=== PATIENT | male | born 1940 | race Caucasian/White ===

== ENCOUNTER 2018-01-30 13:05 | Inpatient (IN) ==
[2018-01-30] MEDS ORDERED: methylPREDNISolone 125 MG/2 ML VIAL IVP ONE (13:10)
[2018-01-30] MEDS ORDERED: Azithromycin 500 MG in D5% in Water 250 ML IVPB ONE (13:10)
[2018-01-30] MEDS ORDERED: cefTRIAXone 1,000 MG in Water for inj. (sterile) 20 ML 10 ML IVP ONE (13:10)
[2018-01-30] MEDS ORDERED: Ipratropium/Albuterol Neb 3 ML IH ONE (13:10)
--- NOTE | 2018-01-30 13:12 | Emergency Department Note ---
Disposition Clinical Impression: Acute exacerbation of chronic obstructive airways disease, History of fall, Hypokalemia, Renal insufficiency, mild, Hypocalcemia, Troponin I above reference range Decubitus ulcers Qualifiers: Pressure ulcer location: buttock Pressure ulcer stage: unspecified pressure ulcer stage Laterality: unspecified laterality Qualified Code(s): L89.309 - Pressure ulcer of unspecified buttock, unspecified stage Disposition: Admitted As Inpatient Condition: Fair Referrals: Shasta Hwang CNP [Primary Care Provider] - Forms: ED Satisfaction Letter SOB HPI - General Chief Complaint: ED Shortness of Breath/Dyspnea Stated Complaint: SOB Time Seen by Provider: 01/30/18 13:06 Source: patient, EMS Mode of arrival: EMS Limitations: physical limitation (Hearing impaired) Nursing Notes Reviewed: Yes Vital Signs Reviewed: Yes - History of Present Illness Patient had a visiting RN visit today and found that he had increased shortness of breath, persistent left hip pain after a fall yesterday and his blood pressure was "little high". A squad was called for transport for further evaluation. The patient states he has had shortness of breath for years it is worse now. He has used his inhalers without much relief. EMS found him to be saturating at 88% on room air and he is not on oxygen at home. They did administer an aerosol and supplemental oxygen. He states he has a cough which is deep, rattling and productive of white phlegm. He denies chest pain, fevers or chills. Is not having diaphoresis, abdominal pain, nausea or diarrhea. He states he does have soreness in the left hip when he is up walking and wanted to have that checked. He has been ambulatory since the fall and for EMS today. The EMS personnel advised they were called to see him yesterday and he had "pain all over" but was ambulatory and declined transport. Patient cannot identify a reason for the fall and thinks he might have passed out. Pt Subjective Complaint: shortness of breath, cough Onset (ago): year(s) Context: recent illness Severity: moderate Consistency/Duration: intermittent, gradually worsening Improves with: oxygen, rest, bronchodilators Worsens with: exertion, coughing Known history of: COPD Associated symptoms: Reports: cough, wheezing, sputum production, lower extremity pain (Left hip, status post fall), syncope. Denies: chest pain, pain with inspiration, fever, orthopnea, polyuria, polydipsia, parasthesias, palpitations, hemoptysis, diaphoresis, nausea/vomiting, abdominal pain, rash Treatment prior to arrival: oxygen, bronchodilator Cough present: Yes Cough Description: Voluntary, Productive, Rattling Cough Frequency: Intermittent Sputum production: Yes Sputum Amount: Moderate Sputum Color: White - Related Data Home oxygen amount: none Home Medications Medication Instructions Recorded Confirmed Dextromethorphan Hb/Doxylamine 236 ml PO AD 10/14/17 01/30/18 [Vicks Nyquil Cough Liquid] Docusate [Colace] 100 mg PO BID 10/14/17 01/30/18 Fluticasone Propionate Nasal 50 mcg NS DAILY 10/14/17 01/30/18 [Flonase] Morphine Sulfate [Morphine Oral 5 ml PO HS 10/14/17 01/30/18 Solution] Albuterol Sulfate [Ventolin Hfa] 2 puff IH Q6H PRN 01/30/18 01/30/18 Budesonide/Formoterol 160/4.5 2 puff IH Q6H PRN 01/30/18 01/30/18 [Symbicort 160/4.5] Allergies Allergy/AdvReac Type Severity Reaction Status Date / Time No Known Allergies Allergy Verified 07/09/15 18:30 All systems ED: reviewed and negative except as stated. Past Medical History - Past Medical History Attestation: Yes The following information was validated with the patient. Source: patient, old records reviewed, nursing notes reviewed Medical history: Reports: COPD, CVA, renal disease (Renal insufficiency), TIA, other (Chronic bilateral decubiti/hidradenitis suppurativa with chronic wound care, chronic pain, chronic anemia) Surgical history: Reports: cataract, orthopedic, other (Bilateral ankles) Psychiatric history: Reports: depression - Social History Smoking Status: Current every day smoker Smokeless Tobacco Status: No Alcohol use: Reports: occasionally Drug use: Reports: none Physical Exam - General Limitations: physical limitation (Hearing impairment) General appearance: alert, in no apparent distress - Head Head exam: atraumatic - Eye Eye exam: Present: normal appearance, PERRL, EOMI. Absent: conjunctival injection - ENT ENT exam: normal exam, normal oropharynx, mucous membranes moist - Neck Neck exam: Present: normal inspection, full ROM, trachea midline. Absent: tenderness, lymphadenopathy - Chest Chest inspection: Present: normal inspection, symmetric chest wall rise - Respiratory Respiratory exam: Present: respiratory distress, wheezes, prolonged expiratory phase, other (Patient has a rhonchorous cough.) - Cardiovascular Cardiovascular exam: Present: regular rate, normal rhythm, normal heart sounds. Absent: tachycardia - Abdominal Exam Abdominal exam: Present: soft, Non-Tender, normal bowel sounds. Absent: tenderness, distention, guarding, rebound, rigidity - Extremities Exam Extremities exam: Present: normal inspection, full ROM, normal capillary refill. Absent: tenderness, pedal edema, calf tenderness - Expanded Lower Extremity Exam Hip/Pelvis exam: Present: normal inspection, full ROM (The patient did not evidence any pain with palpation or motion of the left hip.), pelvis stable. Absent: tenderness, swelling, shortening Upper leg exam: Present: normal inspection, full ROM. Absent: tenderness Knee exam: Present: normal inspection, full ROM. Absent: tenderness, swelling Foot/toe exam: Present: normal inspection, full ROM Neurovascular/Tendon exam: Present: normal capillary refill. Absent: motor deficit, sensory deficit, tendon deficit Gait: not tested/not observed - Back Exam Back exam: Present: normal inspection, full ROM. Absent: tenderness, vertebral tenderness - Neurological Exam Neurological exam: Present: alert, oriented X3 - Psychiatric Psychiatric exam: Present: normal affect, normal mood - Skin Skin exam: Present: warm, dry, intact, normal color. Absent: rash, diaphoresis , pallor Course Course Narrative: 1420: All testing has been discussed with the patient. Given his troponin being mildly elevated at 0.06 is written for a repeat level at 3 PM. He is also written for a dose of oral potassium. I believe will be prudent to have him in for observation on respiratory protocol and for correction of his metabolic derangements. It would be appropriate to recheck his troponin a couple more times. I have placed a page to Dr. Lewis to see if he is agreeable to observing the patient at this facility providing his repeat troponin is not showing progressive elevation. The patient continues to deny any chest pain. Patient currently has a heart rate of 79, blood pressure 136/83 and an oxygen saturation of 99%. 1430: The patient has difficulty with swallowing pills this potassium has been switched to liquid form. I have spoken with Dr. Lewis who is agreeable with observation at this facility providing his troponin is not elevating. 1545: With return of a troponin of 0.05, care is coordinated to observation status to the floor. Vital Signs Temperature 99.2 F 01/30/18 13:07 Pulse Rate 79 01/30/18 13:07 Respiratory Rate 20 01/30/18 13:07 Blood Pressure 144/73 01/30/18 13:07 O2 Sat by Pulse Oximetry 94 01/30/18 13:07 Temperature 99.2 F 01/30/18 13:07 Pulse Rate 75 01/30/18 15:42 Respiratory Rate 19 01/30/18 15:42 Blood Pressure 156/75 01/30/18 15:42 O2 Sat by Pulse Oximetry 96 01/30/18 15:42 Oxygen Delivery Oxygen Delivery Nasal Cannula Shortness of Breath/Dyspnea - Differential Diagnosis Likely: acute exacerbation of chronic obstructive airways disease, pneumonia, asthma with exacerbation - Medical Records Medical records reviewed: Yes I reviewed the patient's medical records. - Lab Data Lab results reviewed: Yes I reviewed the patient's lab results. Lab results narrative: Patient's hemoglobin was 7.8 and his creatinine was 1.64 on 10/14/2017. Result diagrams: 01/30/18 13:35 01/30/18 13:35 Lab Results 01/30/18 01/30/18 01/30/18 Range/Units 13:35 13:35 13:35 WBC 10.3 (4.3-11.1) K/mcL RBC 3.13 L (4.19-5.50) M/mcL Hgb 8.2 L (12.9-16.9) g/dL Hct 25.8 L (37.5-50.1) % MCV 82.4 L (83.0-100.0) fL MCH 26.2 L (28.0-33.3) pg MCHC 31.8 (31.6-35.5) g/dL RDW 18.3 H (11.5-14.5) % Plt Count 291 (140-400) K/mcL MPV 11.2 (9.4-12.4) fL Immature Gran % 0.3 (0-4) % Seg Neutrophils % 84.1 % Lymphocytes % 10.6 % Monocytes % 4.7 % Eosinophils % 0.2 % Basophils % 0.1 % Neutrophils # 8.7 (1.6-8.9) K/mcL Lymphocytes # 1.1 (0.6-4.6) K/mcL Monocytes # 0.5 (0.0-1.3) K/mcL Eosinophils # 0.0 (0.0-0.6) K/mcL Basophils # 0.0 (0.0-0.2) K/mcL Sodium 137 (136-145) mEq/L Potassium 2.9 L (3.5-5.1) mEq/L Chloride 103 (98-107) mEq/L Carbon Dioxide 28 (23-29) mEq/L BUN 19 (8-23) mg/dL Creatinine 1.36 H (0.70-1.30) mg/dL Est GFR ( Amer) > 60 (> 60) Est GFR (Non-Af Amer) 51 L (> 60) BUN/Creatinine Ratio 14 (6-26) Glucose 109 H (70-105) mg/dL Calculated Osmolality 287 (280-300) Lactic Acid 0.9 (0.5-2.2) mmol/L Calcium 8.0 L (8.6-10.3) mg/dL Troponin I 0.06 H* (< 0.04) ng/mL B-Natriuretic Peptide (Less than 100) pg/mL 01/30/18 01/30/18 Range/Units 13:35 15:13 WBC (4.3-11.1) K/mcL RBC (4.19-5.50) M/mcL Hgb (12.9-16.9) g/dL Hct (37.5-50.1) % MCV (83.0-100.0) fL MCH (28.0-33.3) pg MCHC (31.6-35.5) g/dL RDW (11.5-14.5) % Plt Count (140-400) K/mcL MPV (9.4-12.4) fL Immature Gran % (0-4) % Seg Neutrophils % % Lymphocytes % % Monocytes % % Eosinophils % % Basophils % % Neutrophils # (1.6-8.9) K/mcL Lymphocytes # (0.6-4.6) K/mcL Monocytes # (0.0-1.3) K/mcL Eosinophils # (0.0-0.6) K/mcL Basophils # (0.0-0.2) K/mcL Sodium (136-145) mEq/L Potassium (3.5-5.1) mEq/L Chloride (98-107) mEq/L Carbon Dioxide (23-29) mEq/L BUN (8-23) mg/dL Creatinine (0.70-1.30) mg/dL Est GFR ( Amer) (> 60) Est GFR (Non-Af Amer) (> 60) BUN/Creatinine Ratio (6-26) Glucose (70-105) mg/dL Calculated Osmolality (280-300) Lactic Acid (0.5-2.2) mmol/L Calcium (8.6-10.3) mg/dL Troponin I 0.05 H* (< 0.04) ng/mL B-Natriuretic Peptide 2127 H (Less than 100) pg/mL - Radiology Data Radiology results reviewed: Yes I reviewed the patient's radiology results. Single view chest x-ray is performed. This does not demonstrate evidence for infiltrate, pneumothorax, foreign body or heart failure. Patient has expanded consistent with COPD and has a left sided effusion. The cardiac silhouette is normal. I do not see abnormality to the osseous structures of the chest. This is on my interpretation. Two-view series is obtained of the left hip and pelvis. This does not demonstrate evidence for acute hip fracture or dislocation. Pelvis is without evidence for fracture. This is on my interpretation. Impressions Chest X-Ray 01/30/18 13:11 IMPRESSION: Cardiomegaly with perihilar and lower lobe interstitial changes and small effusions. Correlate clinical evidence of vascular congestion. D/ / 01/30/2018 13:49:25 Torsten De Jesus MD / [facility] Interpreting Provider: Torsten De Jesus MD Hip X-Ray 01/30/18 13:12 IMPRESSION: 1. No acute findings in the left hip. 2. Bony demineralization partially limits evaluation for fractures. D/ / Jose Miguel Funes MD / Jose Miguel Funes MD Interpreting Provider: Jose Miguel Funes MD - EKG Data EKG attestation: Yes I reviewed and interpreted this EKG. EKG shows normal: Reports: sinus rhythm, axis, intervals, QRS complexes, ST-T waves Rate: Reports: normal Rhythm: Reports: PVC's Interpretation: Reports: no acute changes, nonspecific ST-T wave changes
[2018-01-30 13:56] LABS: Basophils % 0.1 %; Eosinophils % 0.2 %; Hematocrit 25.8 % (37.5-50.1); Hemoglobin 8.2 g/dL (12.9-16.9); Immature Granulocytes % 0.3 % (0-4); Lymphocytes # 1.1 K/mcL (0.6-4.6); Lymphocytes % 10.6 %; Mean Corpuscular HGB Conc 31.8 g/dL (31.6-35.5); Mean Corpuscular Hemoglobin 26.2 pg (28.0-33.3); Mean Corpuscular Volume 82.4 fL (83.0-100.0); Mean Platelet Volume 11.2 fL (9.4-12.4); Monocytes # 0.5 K/mcL (0.0-1.3); Monocytes % 4.7 %; Neutrophils # 8.7 K/mcL (1.6-8.9); Platelet Count 291 K/mcL (140-400); Red Blood Count 3.13 M/mcL (4.19-5.50); Red Cell Distribution Width 18.3 % (11.5-14.5); Segmented Neutrophils % 84.1 %
[2018-01-30 14:16] LABS: BUN/Creatinine Ratio 14 (6-26); Blood Urea Nitrogen 19 mg/dL (8-23); Carbon Dioxide 28 mEq/L (23-29); Chloride 103 mEq/L (98-107); Glucose 109 mg/dL (70-105); Osmolality,Calculated 287 (280-300); Potassium 2.9 mEq/L (3.5-5.1); Sodium 137 mEq/L (136-145); eGFR For African Americans > 60 (> 60); eGFR For Non-African Americans 51 (> 60)
[2018-01-30 14:19] LABS: Troponin I 0.06 ng/mL (< 0.04)
[2018-01-30] MEDS ORDERED: Potassium Chloride Elixir 20 MEQ/15 ML UDC PO ONE (14:31)
[2018-01-30] MEDS ORDERED: Naloxone 0.4 MG/ML INJ IVP PRN (16:24)
[2018-01-30] MEDS ORDERED: Ipratropium/Albuterol Neb 3 ML IH SCH (16:24)
--- NOTE | 2018-01-30 17:53 | Internal Med History&Physical ---
Date of Encounter: 01/30/18 Time of Encounter: 17:15 Assessment and Plan (1) Hypokalemia Current visit: Yes Status: Acute (2) Multiple falls Current visit: Yes Status: Acute Probably multifactorial etiology including electrolyte imbalance, orthostatic hypotension, and anemia. Will order PT and OT evaluation and further interventions and workup as needed. (3) Anemia Current visit: Yes Status: Acute Suspect iron deficiency. Will order anemia testing. Qualifiers: Anemia type: unspecified type Qualified Code(s): D64.9 - Anemia, unspecified (4) CKD (chronic kidney disease) stage 3, GFR 30-59 ml/min Current visit: Yes Status: Chronic Will monitor renal indices. (5) Elevated brain natriuretic peptide (BNP) level Current visit: Yes Status: Acute Will order echocardiogram. (6) Weight loss Current visit: Yes Status: Acute Will order CT of chest, abdomen, and pelvis (7) Neutrophilia Current visit: Yes Status: Acute We will check UA and chest CT. He has been started on Rocephin and Zithromax. Will add lactobacillus. (8) Low zinc level Current visit: Yes Status: Acute Zinc level was 43 on 05/05/2017. Will recheck in a.m. (9) COPD (chronic obstructive pulmonary disease) Current visit: Yes Status: Chronic Will check room air oximetry prior to discharge. Qualifiers: COPD type: unspecified COPD Qualified Code(s): J44.9 - Chronic obstructive pulmonary disease, unspecified (10) Dysphagia Current visit: No Status: Chronic Will order chest CT as per above. He will likely need EGD Qualifiers: Dysphagia type: pharyngeal phase Qualified Code(s): R13.13 - Dysphagia, pharyngeal phase Internal Medicine - H&P: HPI Chief complaint: Fall and weakness Admitted From: Emergency Dept Plans for Post Hospital Care: Home History of present illness: Mr. Lemus is a 77 year old male who came to emergency room after his home health nurse found him to have increased dyspnea on exertion and complaining of hip pain after a fall yesterday in his home. He was evaluated in emergency room and found to have anemia and azotemia. He was admitted to [facility] floor for ongoing care needs. He states he has fallen approximately 6-8 times in the past year without significant injury. He reports he has had "mini strokes" in the past but upon further questioning it seems these are likely TIAs. He denies large distribution strokes or seizures. He reports he has had dysphagia increased over the past 2 years. 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 He still drinks 10-12 cans of beer per week. Denies disorders of his gallbladder or exocrine pancreas. Past Med Surg Social Fam HX - Past Medical History Medical history: COPD, CVA, renal disease (Renal insufficiency), TIA, other ( Chronic bilateral decubiti/hidradenitis suppurativa with chronic wound care, chronic pain, chronic anemia) Psychiatric history: depression - Past Surgical History Surgical History: cataract, orthopedic, other (Bilateral ankles) - Social History Smoking Status: Current every day smoker Smokeless Tobacco Status: No Alcohol use: occasionally Drug use: none - Family History Father Living Status: Hx Family Neuromuscular Disorders: Yes (CVA) Internal Medicine - H&P: Meds Dextromethorphan Hb/Doxylamine [Vicks Nyquil Cough Liquid] 236 ml PO AD [History] Docusate [Colace] 100 mg PO BID 10/14/17 [History] Fluticasone Propionate Nasal [Flonase] 50 mcg NS DAILY 10/14/17 [History] Morphine Sulfate [Morphine Oral Solution] 5 ml PO HS 10/14/17 [History] Albuterol Sulfate [Ventolin Hfa] 2 puff IH Q6H PRN 01/30/18 [History] Budesonide/Formoterol 160/4.5 [Symbicort 160/4.5] 2 puff IH Q6H PRN 01/30/18 [ History] 3 Allergy/AdvReac Type Severity Reaction Status Date / Time No Known Allergies Allergy Verified 07/09/15 18:30 All Systems PM: A 10-system review of systems was performed and is negative for pertinent findings except as documented above in the HPI. Review of systems: Gen.: He states his weight has decreased from approximately 150 pounds one year ago to 120 pounds presently, unintentionally. Cardiovascular: He denies diagnoses of hypertension and [place] heart failure angina DVT or pulmonary embolus. He has had orthostatic symptoms on arising from a seated position for at least one year. Respiratory: He has smoked since age 7 up to 2 packs per day. He has been told he has COPD but has not had PFTs and does not use home oxygen. GI: As per history of present illness : He reports he has had hematuria in the past. He denies other known kidney bladder prostate disorders Neurologic: As per history of present illness Endocrine: He denies diabetes thyroid disease or hyperlipidemia Hematology/oncology: He thinks he has been told he had anemia in the past but does not remember details. He denies known internal malignancies or other blood disorders Psychiatric: He feels depressed at times but does not take medication for this. Denies anxiety other mental health issues Muscle skeletal: He has DJD and chronic low back pain. 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 He denies gout. - Constitutional Vitals: Temp Pulse Resp BP Pulse Ox 99.2 F 70 18 147/82 98 01/30/18 13:07 01/30/18 16:09 01/30/18 16:09 01/30/18 16:09 01/30/18 16:09 Exam: General: He is a well-developed lean male lying in bed who appears in no severe distress HEENT: Head is atraumatic and normocephalic. Eyes: EOMI.. There is no scleral icterus. Mouth: Mucosa is dry. Neck: There is no thyromegaly or adenopathy noted. Heart: Irregular. I cannot tell if it is regularly or irregularly irregular. No murmurs are heard. Lungs: He has scattered rhonchi bilaterally. There is no significant wheezing heard. He has diminished breaths diffusely. Abdomen: Soft and nontender. No masses or guarding are noted. Extremities: He is wearing SALVADOR hose. There is 1+ edema around the ankle area. He has tobacco stains on his right hand fingernails. He has mild DJD changes of his hands. Neurologic: Mental status: He is talkative and a fair to good historian. Cranial nerves: Smile is symmetric. Forehead wrinkles bilaterally. Tongue protrudes midline. EOMI. Motor: There is no pronator drift. Cerebellar: Finger to nose is intact bilaterally. Skin: He has multiple Allevyn on his sacrum and gluteal areas which I did not remove. Internal Med - H&P Results - Labs CBC & Chem 7: 01/30/18 13:35 01/30/18 13:35
[2018-01-30] MEDS: 0.45 % Sodium Chloride w/KCl 20 MEQ/1,000 ML MLS IVC SCH (19:02)
[2018-01-30] MEDS: Morphine Oral CONC 5 MG/0.25 ML ORAL.SYG PO SCH (20:15)
[2018-01-30 21:24] LABS: Bilirubin,Urine Negative (Negative); Blood,Urine Trace-lysed (Negative); Clarity,Urine Clear (Clear); Color,Urine Yellow (Yellow); Glucose,Urine (UA) Normal (Normal); Ketones,Urine Negative (Negative); Leukocyte Esterase,Urine Negative (Negative); Nitrite,Urine Negative (Negative); PH,Urine 5.5 pH Units (5.0-8.0); Protein,Urine >=300 mg/dL (Neg-Trace); Specific Gravity,Urine 1.025 (1.010-1.025); Urobilinogen,Urine Normal (Normal)
[2018-01-30 21:35] LABS: Granular Casts,Urine Few per lpf (None Seen); Hyaline Casts,Urine Few per lpf (None-Few); RBC,Urine 0-3 per hpf (0-3); Squamous Epithelial Cell,Urine Few per lpf (None-Few); WBC,Urine 0-3 per hpf (0-3)
[2018-01-30 21:36] LABS: Bacteria,Urine Moderate per hpf (None-Few)
[2018-01-30 22:03] LABS: Iron < 10 mcg/dL (65-175); Transferrin 151 mg/dL (203-362)
[2018-01-30] MEDS: MethylPREDNISolone 40 MG/ML VIAL IVP SCH (23:02)
[2018-01-31 03:52] LABS: Hematocrit 23.5 % (37.5-50.1); Hemoglobin 7.5 g/dL (12.9-16.9); Immature Granulocytes % 0.2 % (0-4); Lymphocytes # 0.4 K/mcL (0.6-4.6); Lymphocytes % 7.5 %; Mean Corpuscular HGB Conc 31.9 g/dL (31.6-35.5); Mean Corpuscular Hemoglobin 26.4 pg (28.0-33.3); Mean Corpuscular Volume 82.7 fL (83.0-100.0); Mean Platelet Volume 10.8 fL (9.4-12.4); Monocytes % 0.5 %; Neutrophils # 5.4 K/mcL (1.6-8.9); Platelet Count 235 K/mcL (140-400); Red Blood Count 2.84 M/mcL (4.19-5.50); Red Cell Distribution Width 18.3 % (11.5-14.5); Segmented Neutrophils % 91.8 %
[2018-01-31 04:07] LABS: INR 1.1; Prothrombin Time 11.9 Seconds (9.4-12.1)
[2018-01-31 04:28] LABS: Alanine Aminotransferase 9 Units/L (7-52); Albumin 2.2 g/dL (3.5-5.7); Albumin/Globulin Ratio 0.6 (1.1-2.2); Alkaline Phosphatase 71 Units/L (34-104); Aspartate Amino Transferase 17 Units/L (13-39); BUN/Creatinine Ratio 15 (6-26); Bilirubin,Total 0.2 mg/dL (0.3-1.0); Blood Urea Nitrogen 19 mg/dL (8-23); Calcium 7.5 mg/dL (8.6-10.3); Carbon Dioxide 28 mEq/L (23-29); Chloride 104 mEq/L (98-107); Globulin 3.4 g/dL (2.4-3.5); Glucose 153 mg/dL (70-105); Osmolality,Calculated 287 (280-300); Potassium 4.4 mEq/L (3.5-5.1); Sodium 136 mEq/L (136-145); Total Protein 5.6 g/dL (6.4-8.9); eGFR For African Americans > 60 (> 60); eGFR For Non-African Americans 53 (> 60)
[2018-01-31 04:45] LABS: Thyroid Stimulating Hormone 2.329 mcIU/mL (0.340-5.600)
[2018-01-31] MEDS ORDERED: cefTRIAXone 1,000 MG in Water for inj. (sterile) 20 ML 10 ML IVP SCH (09:00)
[2018-01-31] MEDS ORDERED: Azithromycin 500 MG in D5% in Water 250 ML IVPB SCH (09:00)
[2018-01-31] MEDS ORDERED: Potassium Chloride Elixir 20 MEQ/15 ML UDC PO SCH (09:00)
[2018-01-31 09:21] LABS: Folate 19.1 ng/mL (3.0-16.0)
[2018-01-31] MEDS: MethylPREDNISolone 40 MG/ML VIAL IVP SCH (09:33)
[2018-01-31] MEDS: 0.45 % Sodium Chloride w/KCl 20 MEQ/1,000 ML MLS IVC SCH (09:55)
[2018-01-31] MEDS: Docusate Oral Soln 100 MG/10 ML UDC PO SCH ×2 (09:56→20:49)
--- NOTE | 2018-01-31 11:00 | Internal Med Progress Note ---
Date of Encounter: 01/31/18 Time of Encounter: 10:50 - Assessment and plan (1) Hypokalemia Current Visit: Yes Status: Acute Assessment and plan: January 31. Resolved. We will reduce supplement potassium and monitor labs. (2) Multiple falls Current Visit: Yes Status: Acute Assessment and plan: January 31. Continue physical therapy and occupational therapy interventions. (3) Anemia Current Visit: Yes Status: Acute Assessment and plan: January 31. Ferritin level pending. Iron profile consistent with iron deficiency. Will give iron dextran IV. Qualifiers: Anemia type: unspecified type Qualified Code(s): D64.9 - Anemia, unspecified (4) CKD (chronic kidney disease) stage 3, GFR 30-59 ml/min Current Visit: Yes Status: Chronic Assessment and plan: January 31. Renal indices minimally changed. Continue to monitor. (5) Elevated brain natriuretic peptide (BNP) level Current Visit: Yes Status: Acute Assessment and plan: January 31. Awaiting echocardiogram report. Will start low-dose Coreg and lisinopril with Bumex and isosorbide. Recheck labs in a.m. (6) Weight loss Current Visit: Yes Status: Acute Assessment and plan: January 31. CT scans did not show obvious malignancy. Continue to monitor weight and food intake etc. (7) Neutrophilia Current Visit: Yes Status: Acute Assessment and plan: January 31. Continue Rocephin and Zithromax with lactobacillus. (8) Low zinc level Current Visit: Yes Status: Acute Assessment and plan: January 31. Zinc level pending. (9) COPD (chronic obstructive pulmonary disease) Current Visit: Yes Status: Chronic Assessment and plan: January 31. Continue present regimen. Will check room air oximetry prior to discharge. Qualifiers: COPD type: unspecified COPD Qualified Code(s): J44.9 - Chronic obstructive pulmonary disease, unspecified (10) Dysphagia Current Visit: No Status: Chronic Assessment and plan: January 31. Chest CT did not show obvious pathology to explain symptoms. He will likely need EGD in the future. Qualifiers: Dysphagia type: pharyngeal phase Qualified Code(s): R13.13 - Dysphagia, pharyngeal phase (11) Vitamin D deficiency Current Visit: Yes Status: Acute Assessment and plan: January 31. Vitamin D level low at 22. Will give supplemental vitamin D. - Subjective Interval history: January 31. He has no new complaints. - Constitutional Vitals: Temp Pulse Resp BP Pulse Ox 98.1 F 75 16 166/71 95 01/31/18 06:29 01/31/18 10:07 01/31/18 06:29 01/31/18 06:29 01/31/18 10:07 Exam: He is lying in bed resting comfortably. His affect is slightly flat. I reviewed his medications, lab results and CT report. Internal Medicine: Result - Labs CBC & Chem 7: 01/31/18 03:20 01/31/18 03:20 Labs: Short CBC 01/31/18 Range/Units 03:20 WBC 5.9 (4.3-11.1) K/mcL Hgb 7.5 L (12.9-16.9) g/dL Hct 23.5 L (37.5-50.1) % Plt Count 235 (140-400) K/mcL Neutrophils # 5.4 (1.6-8.9) K/mcL BMP 01/31/18 03:20 Sodium 136 Potassium 4.4 D Chloride 104 Carbon Dioxide 28 BUN 19 Creatinine 1.31 H Glucose 153 H Calcium 7.5 L Cardiac Enzymes 01/30/18 01/31/18 Range/Units 21:29 03:20 Troponin I 0.04 H* 0.05 H* (< 0.04) ng/mL Liver Function 01/31/18 Range/Units 03:20 Total Bilirubin 0.2 L (0.3-1.0) mg/dL AST 17 (13-39) Units/L ALT 9 (7-52) Units/L Alkaline Phosphatase 71 (34-104) Units/L Albumin 2.2 L (3.5-5.7) g/dL Urine 01/30/18 Range/Units 21:16 Urine Color Yellow (Yellow) Urine Clarity Clear (Clear) Urine pH 5.5 (5.0-8.0) pH Units Ur Specific [place] 1.025 (1.010-1.025) Urine Protein >=300 H (Neg-Trace) mg/dL Urine Glucose (UA) Normal (Normal) mg/dL - ABG Interpretation ABG results: PT/INR, D-dimer PT 11.9 Seconds (9.4-12.1) 01/31/18 03:20 - VTE Documentation of Mechanical Device: Graduated compression elastic hosiery Consult Discharge Plan - Plan Referrals: Shasta Hwang, CODE [employer]BER STAMPER [Primary Care Provider] - 1 week
[2018-01-31] MEDS ORDERED: SODIUM CHLORIDE 0.9% IVPB ONE (13:00)
[2018-01-31] MEDS ORDERED: IRON DEXTRAN COMPLEX IVPB ONE (13:00)
[2018-01-31] MEDS: cefTRIAXone 1,000 MG in Water for inj. (sterile) 10 ML IVP SCH (13:45)
[2018-01-31] MEDS: Azithromycin 500 MG in D5% in Water 250 ML IVPB SCH (13:53)
[2018-01-31] MEDS: Isosorbide MONOnitrate (24 HR) 30 MG TAB.ER.24H PO SCH (13:59)
[2018-01-31] MEDS: Bumetanide 1 MG TABLET PO SCH (13:59)
[2018-01-31] MEDS: Cholecalciferol (D-3) 1,000 UNIT TABLET PO SCH (16:19)
--- NOTE | 2018-01-31 17:38 | Electrocardiograph Report ---
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
[2018-01-31] MEDS: Morphine Oral CONC 5 MG/0.25 ML ORAL.SYG PO SCH (20:49)
[2018-01-31] MEDS: Lactobacillus 1 EACH CAP.SPRINK PO SCH (20:49)
[2018-01-31] MEDS: Potassium Chloride Elixir 20 MEQ/15 ML UDC PO SCH (20:49)
[2018-01-31 23:07] LABS: Ferritin 24 ng/ml (20-250)
[2018-02-01] MEDS: Albuterol 2.5 MG/3 ML NEBULIZER IH PRN ×3 (06:05→13:29)
[2018-02-01 06:30] LABS: Basophils % 0.1 %; Hematocrit 21.1 % (37.5-50.1); Hemoglobin 6.7 g/dL (12.9-16.9); Immature Granulocytes % 0.5 % (0-4); Lymphocytes % 8.1 %; Mean Corpuscular HGB Conc 31.8 g/dL (31.6-35.5); Mean Corpuscular Hemoglobin 26.5 pg (28.0-33.3); Mean Corpuscular Volume 83.4 fL (83.0-100.0); Mean Platelet Volume 12.8 fL (9.4-12.4); Monocytes # 0.7 K/mcL (0.0-1.3); Neutrophils # 11.1 K/mcL (1.6-8.9); Platelet Count 235 K/mcL (140-400); Red Blood Count 2.53 M/mcL (4.19-5.50); Red Cell Distribution Width 18.4 % (11.5-14.5); Segmented Neutrophils % 86.3 %
[2018-02-01 07:02] LABS: Calcium 7.6 mg/dL (8.6-10.3); Potassium 4.2 mEq/L (3.5-5.1)
[2018-02-01] MEDS: Cholecalciferol (D-3) 1,000 UNIT TABLET PO SCH (08:33)
[2018-02-01] MEDS: Docusate Oral Soln 100 MG/10 ML UDC PO SCH ×2 (08:33→20:35)
[2018-02-01] MEDS: Bumetanide 1 MG TABLET PO SCH (08:33)
[2018-02-01] MEDS: Isosorbide MONOnitrate (24 HR) 30 MG TAB.ER.24H PO SCH (08:34)
[2018-02-01] MEDS: Lactobacillus 1 EACH CAP.SPRINK PO SCH ×2 (08:34→20:35)
[2018-02-01] MEDS: Potassium Chloride Elixir 20 MEQ/15 ML UDC PO SCH ×2 (08:34→20:35)
[2018-02-01] MEDS: cefTRIAXone 1,000 MG in Water for inj. (sterile) 10 ML IVP SCH (12:24)
[2018-02-01] MEDS: Azithromycin 500 MG in D5% in Water 250 ML IVPB SCH (12:25)
--- NOTE | 2018-02-01 18:24 | Internal Med Progress Note ---
Date of Encounter: 02/01/18 Time of Encounter: 18:15 - Assessment and plan (1) Hypokalemia Current Visit: Yes Status: Acute Assessment and plan: January 31. Resolved. We will reduce supplement potassium and monitor labs. (2) Multiple falls Current Visit: Yes Status: Acute Assessment and plan: January 31. Continue physical therapy and occupational therapy interventions. (3) Anemia Current Visit: Yes Status: Acute Assessment and plan: January 31. Ferritin level pending. Iron profile consistent with iron deficiency. Will give iron dextran IV. February 01. Hemoglobin is decreased to 6.7. Will recheck in a.m. and transfuse if not improved. Qualifiers: Anemia type: unspecified type Qualified Code(s): D64.9 - Anemia, unspecified (4) CKD (chronic kidney disease) stage 3, GFR 30-59 ml/min Current Visit: Yes Status: Chronic Assessment and plan: January 31. Renal indices minimally changed. Continue to monitor. (5) Elevated brain natriuretic peptide (BNP) level Current Visit: Yes Status: Acute Assessment and plan: January 31. Awaiting echocardiogram report. Will start low-dose Coreg and lisinopril with Bumex and isosorbide. Recheck labs in a.m. February 01. Echocardiogram showed LVEF of 45%. There was reported mild diastolic dysfunction with E/A ratio 1.2. BN peptide improved to 1857. Continue present regimen and recheck labs in a.m. (6) Weight loss Current Visit: Yes Status: Acute Assessment and plan: January 31. CT scans did not show obvious malignancy. Continue to monitor weight and food intake etc. (7) Neutrophilia Current Visit: Yes Status: Acute Assessment and plan: January 31. Continue Rocephin and Zithromax with lactobacillus. (8) Low zinc level Current Visit: Yes Status: Acute Assessment and plan: January 31. Zinc level pending. (9) COPD (chronic obstructive pulmonary disease) Current Visit: Yes Status: Chronic Assessment and plan: January 31. Continue present regimen. Will check room air oximetry prior to discharge. Qualifiers: COPD type: unspecified COPD Qualified Code(s): J44.9 - Chronic obstructive pulmonary disease, unspecified (10) Dysphagia Current Visit: No Status: Chronic Assessment and plan: January 31. Chest CT did not show obvious pathology to explain symptoms. He will likely need EGD in the future. Qualifiers: Dysphagia type: pharyngeal phase Qualified Code(s): R13.13 - Dysphagia, pharyngeal phase (11) Vitamin D deficiency Current Visit: Yes Status: Acute Assessment and plan: January 31. Vitamin D level low at 22. Will give supplemental vitamin D. - Subjective Interval history: January 31. He has no new complaints. February 01. He has no new complaints and states his dyspnea has lessened. - Constitutional Vitals: Temp Pulse Resp BP Pulse Ox 98.5 F 61 18 142/75 95 02/01/18 15:23 02/01/18 15:23 02/01/18 15:23 02/01/18 15:23 02/01/18 15:23 Exam: He is resting comfortably in bed and appears in no acute distress. His lungs showed scattered rhonchi bilaterally. Extremities show trace to 1+ edema around the ankles. I reviewed his medications and lab results. Internal Medicine: Result - Labs CBC & Chem 7: 02/01/18 05:52 02/01/18 05:52 Labs: Short CBC 02/01/18 Range/Units 05:52 WBC 12.9 H D (4.3-11.1) K/mcL Hgb 6.7 L (12.9-16.9) g/dL Hct 21.1 L (37.5-50.1) % Plt Count 235 (140-400) K/mcL Neutrophils # 11.1 H (1.6-8.9) K/mcL BMP 02/01/18 05:52 Sodium 138 Potassium 4.2 Chloride 108 H Carbon Dioxide 27 BUN 27 H Creatinine 1.61 H Glucose 112 H Calcium 7.6 L - ABG Interpretation ABG results: PT/INR, D-dimer PT 11.9 Seconds (9.4-12.1) 01/31/18 03:20 - VTE Documentation of Mechanical Device: Graduated compression elastic hosiery Consult Discharge Plan - Plan Referrals: Shasta Hwang, [employer] [Primary Care Provider] - 1 week
[2018-02-01] MEDS: Morphine Oral CONC 5 MG/0.25 ML ORAL.SYG PO SCH (20:40)
[2018-02-02] MEDS: Albuterol 2.5 MG/3 ML NEBULIZER IH PRN (04:31)
[2018-02-02 07:16] LABS: Eosinophils # 0.1 K/mcL (0.0-0.6); Eosinophils % 0.7 %; Hematocrit 22.7 % (37.5-50.1); Hemoglobin 7.1 g/dL (12.9-16.9); Immature Granulocytes % 0.5 % (0-4); Lymphocytes % 11.1 %; Mean Corpuscular HGB Conc 31.3 g/dL (31.6-35.5); Mean Corpuscular Hemoglobin 26.6 pg (28.0-33.3); Monocytes # 0.6 K/mcL (0.0-1.3); Monocytes % 6.1 %; Neutrophils # 7.5 K/mcL (1.6-8.9); Platelet Count 238 K/mcL (140-400); Red Blood Count 2.67 M/mcL (4.19-5.50); Red Cell Distribution Width 18.6 % (11.5-14.5); Segmented Neutrophils % 81.6 %
[2018-02-02] MEDS: Potassium Chloride Elixir 20 MEQ/15 ML UDC PO SCH (09:04)
[2018-02-02] MEDS: Lactobacillus 1 EACH CAP.SPRINK PO SCH (09:04)
[2018-02-02] MEDS: Isosorbide MONOnitrate (24 HR) 30 MG TAB.ER.24H PO SCH (09:04)
[2018-02-02] MEDS: Bumetanide 1 MG TABLET PO SCH (09:04)
[2018-02-02] MEDS: Docusate Oral Soln 100 MG/10 ML UDC PO SCH (09:04)
[2018-02-02] MEDS: Cholecalciferol (D-3) 1,000 UNIT TABLET PO SCH (09:05)
[2018-02-02 10:25] LABS: BUN/Creatinine Ratio 20 (6-26); Blood Urea Nitrogen 26 mg/dL (8-23); Carbon Dioxide 29 mEq/L (23-29); Chloride 107 mEq/L (98-107); Potassium 4.5 mEq/L (3.5-5.1); Sodium 141 mEq/L (136-145); eGFR For African Americans > 60 (> 60)
[2018-02-02 10:26] LABS: Calcium 7.9 mg/dL (8.6-10.3); Glucose 90 mg/dL (70-105); Magnesium 1.9 mg/dL (1.6-2.6); Osmolality,Calculated 296 (280-300); eGFR For Non-African Americans 54 (> 60)
--- NOTE | 2018-02-02 10:59 | Discharge Summary ---
Orders not resulted at time of discharge: Pending orders 02/02/18 07:08 B-Type Natriuretic Peptide AM 0400 Date of Encounter: 02/02/18 Time of Encounter: 10:45 - Discharge Diagnosis (1) Hypokalemia Priority: Primary Status: Acute (2) Multiple falls Priority: Secondary Status: Acute (3) Anemia Priority: Secondary Status: Acute Qualifiers: Anemia type: unspecified type Qualified Code(s): D64.9 - Anemia, unspecified (4) CKD (chronic kidney disease) stage 3, GFR 30-59 ml/min Priority: Secondary Status: Chronic (5) Elevated brain natriuretic peptide (BNP) level Priority: Secondary Status: Acute (6) Weight loss Priority: Secondary Status: Acute (7) Neutrophilia Priority: Secondary Status: Acute (8) Low zinc level Priority: Secondary Status: Acute (9) COPD (chronic obstructive pulmonary disease) Priority: Secondary Status: Chronic Qualifiers: COPD type: unspecified COPD Qualified Code(s): J44.9 - Chronic obstructive pulmonary disease, unspecified (10) Dysphagia Priority: Secondary Status: Chronic Qualifiers: Dysphagia type: pharyngeal phase Qualified Code(s): R13.13 - Dysphagia, pharyngeal phase (11) Vitamin D deficiency Priority: Secondary Status: Acute Hospital course: Mr. Lemus is a 77 year old male who came to emergency room after his home health nurse found him to have increased dyspnea on exertion and complaining of hip pain after a fall yesterday in his home. He was evaluated in emergency room and found to have anemia and azotemia. He was admitted to [facility] floor for ongoing care needs. Initial orders were written by the emergency room physician. I saw him on January 30 and performed a history and physical. He was given supplement potassium and his potassium normalized by time of discharge to swing bed. PT and OT evaluation was done to further evaluate his falls. He had improvement and will continue with therapy in swing bed. Anemia testing was ordered with findings consistent with iron deficiency. He was given iron dextran. Hemoglobin was stable at 7.1 on day of discharge. Echocardiogram was done to further evaluate his elevated BN peptide. The LVEF return decreased at 45%. There was moderate LV diastolic dysfunction, mild aortic regurgitation, mild mitral regurgitation, mild pulmonary regurgitation and pleural effusions noted. He had clinical improvement on his medical regimen started during hospitalization. CT of chest abdomen pelvis was done to further evaluate weight loss. He had pleural effusions and small pericardial effusion with small-volume abdominal ascites. I felt these were probably secondary to heart failure. There was distal rectal wall thickening and 4.2 cm thoracic aortic aneurysm. No evidence of malignancy was seen. He complained of dysphagia on admission but this seemed to lessen during hospital stay. He will possibly need EGD after discharge. Zinc level was ordered with results pending at time of discharge. He was started on Rocephin and Zithromax for possible pneumonia. WBC was normal at 9.2 on day of discharge but there was still left shift with 81.6% segs. He will continue with IV antibiotics for a few days in swing bed. On February 02 arrangements were completed for him to be discharged to swing bed for ongoing care needs. - Time Spent with Patient Total time spent providing and/or coordinating discharge services: - Discharge Medications Prescriptions: Isosorbide MONOnitrate (24 HR) [Imdur] 30 mg PO DAILY 30 Days tab.er.24h Home Medications: Dextromethorphan Hb/Doxylamine [Vicks Nyquil Cough Liquid] 236 ml PO AD [History] Docusate [Colace] 100 mg PO BID 10/14/17 [History] Fluticasone Propionate Nasal [Flonase] 50 mcg NS DAILY 10/14/17 [History] Morphine Sulfate [Morphine Oral Solution] 5 ml PO HS 10/14/17 [History] Albuterol Sulfate [Ventolin Hfa] 2 puff IH Q6H PRN 01/30/18 [History] Budesonide/Formoterol 160/4.5 [Symbicort 160/4.5] 2 puff IH Q6H PRN 01/30/18 [ History] Acetaminophen [Tylenol Susp] 325 mg PO Q6HR PRN ud.liq 02/02/18 [Rx] Albuterol Neb [Proventil Neb] 2.5 mg IH Q2H PRN inhsol 02/02/18 [Rx] Azithromycin [Zithromax] 500 mg IVPB Q24H vial 02/02/18 [Rx] Bumetanide [Bumex] 0.5 mg PO DAILY tablet 02/02/18 [Rx] Carvedilol [Coreg] 6.25 mg PO BIDWM tablet 02/02/18 [Rx] Cholecalciferol (D-3) [Vitamin D] 1,000 unit PO DAILY tablet 02/02/18 [Rx] GuaiFENesin/Dextromethorphan [Robitussin/Dm] 10 ml PO Q6HR udc 02/02/18 [Rx] Isosorbide MONOnitrate (24 HR) [Imdur] 30 mg PO DAILY 30 Days tab.er.24h [Rx] Lactobacillus [Culturelle] 1 each PO BID cap.sprink 02/02/18 [Rx] Lisinopril [Zestril] 10 mg PO DAILY tablet 02/02/18 [Rx] Naloxone [Narcan] 0.4 mg IVP Q2MIN PRN inj 02/02/18 [Rx] Potassium Chloride Elixir [Potassium Chloride] 10 meq PO BID udc 02/02/18 [Rx] cefTRIAXone [Rocephin] 1,000 mg IVP Q24H vial 02/02/18 [Rx] Allergies/Adverse Reactions: 3 Allergy/AdvReac Type Severity Reaction Status Date / Time No Known Allergies Allergy Verified 07/09/15 18:30 Date of admission: 01/30/18 18:04 Primary care physician: Shasta Hwang CNP - Constitutional Vitals: Temp Pulse Resp BP Pulse Ox 97.9 F 62 18 162/86 97 02/02/18 06:44 02/02/18 06:44 02/02/18 06:44 02/02/18 06:44 02/02/18 06:44 - Patient Status Disposition: Transfer Hospital Swing Bed Condition: Fair Functional capacity at discharge: uses cane/walker - Discharge Instructions - Diet and Activity Activity: as per physical therapy Diet: regular diet - VTE Documentation of Mechanical Device: Graduated compression elastic hosiery
[2018-02-02 11:02] VITALS: BP 163/77
[2018-02-02] MEDS ORDERED: Albuterol 2.5 MG/3 ML NEBULIZER ONE (13:13)
== END 2018-02-02 12:18 | disposition other institution (70) | DRG 194 ==
LOC: EMEROOPIK 13:05 → INPPIK 13:05
PROVIDERS: ADMIT Internal Medicine; ATTEND Internal Medicine